=== PATIENT | female | born 1945 | race Caucasian/White ===

== ENCOUNTER 2019-01-15 21:05 | Emergency (ER) | payer MEDICARE, OTHER ==
[~2019-01-15] VITALS: Ht 157.5 cm; Wt 68.9 kg
--- OUTSIDE RECORDS SUMMARY | 2019-01-15 21:07 | XMS REPORT | Summary of Care ---
Author Organization Unknown Address Unknown Phone Unavailable Encounter HQ Chino_carlyn(AMELIA) [id number] Date(s): 07/31/14 - 07/31/14 [facility] [address] [place] [address]- Discharge Disposition: Home Physician Attending: Ally Juares MD Physician_Referring: Ally Juares MD Vital Signs Most recent to 1 oldest [Reference Range]: Height 157.48 cm (07/31/14 3:41 PM) Weight 78.636 kg (07/31/14 3:41 PM) Body Mass Index 31.71 m2 (07/31/14 3:41 PM) Problem List No data available for this section Allergies, Adverse Reactions, Alerts No data available for this section Medications Omniscan 2,296 mg, 8 mL, Route: INJ, Drug form: INJ, ONCALL, Start date: 07/31/14 18:00:0 0, Duration: 1 day, Stop date: 08/01/14 17:59:00 Notes: (Same as: Omniscan). Start Date: 07/31/14 Stop Date: 08/01/14 Status: Discontinued Results No data available for this section Immunizations No data available for this section Procedures No data available for this section Social History No data available for this section Assessment and Plan No data available for this section
--- OUTSIDE RECORDS SUMMARY | 2019-01-15 21:07 | XMS REPORT | Continuity of Care Document ---
Author Author [facility] Organization [facility] Address Unknown Phone Unavailable Care Team Providers Care Back Hoe Operator Name Role Phone [employer] Unavailable Unavailable Problems Problem Status Onset Date Classification Date Reported Comments Source Pain in right knee 01/04/2018 07/17/2018 [facility] [place] J20.8 - ACUTE BRONCHITIS DUE TO OTHER R0 Active 09[facility]17/2017 [facility] Z[facility]13 - ENCNTR SCREEN FOR MALIGNANT NE Active 09/09/2017 [facility] [place] 719.42 - JOINT PAIN-UP/A [facility] Active 07/25/2014 [facility] 571.0 - ALCOHOLIC FATTY Active 09/20/2013 [facility] [place] Umbilical hernia (disorder) Active 03/17/2012 Problem 07/17/2018 Data migrated from [email or web address] on 10/16/14. [facility] [place],[facility] [place], [facility] Generalized abdominal pain (finding) Active 06/30/2011 Problem 07/17/2018 Data migrated from [email or web address] on 10/16/14. [facility] [place],[facility] [place], [facility] Effusion, right knee 07/17/2018 [facility] [place] Synovial cyst of popliteal space [Quiroga], right knee 07/17/2018 [facility] [place] SYNCOPE AND COLLAPSE Active [facility] LT SHOULDER Active [facility] [place] Medications Medication Details Route Status Patient Instructions Ordering Provider Order Date Source Omniscan 2,296 mg, 8 mL, Route: INJ, Drug form: INJ, ONCALL, Start date: 07/31/14 18:00:00, Duration: 1 day, Stop date: 08/01/14 17:59:00Notes: (Same as: Omniscan). No Longer Active 07/31/2014 [facility] Allergies, Adverse Reactions, Alerts No Known Medication Allergies Immunizations No Data Provided for This Section Results No Data Provided for This Section Pathology Reports No Data Provided for This Section Diagnostic Reports Report Value Date Source Knee wo contrast MRI EXAMINATION: MRI of the right knee without contrast HISTORY: M25.561 Pain in right knee; medial right knee pain in right knee tightness right knee medial meniscus tear; right knee medial compartment chondrosis; right knee effusion; right knee Quiroga's cyst COMPARISON: There are no radiographs available for review. TECHNIQUE: Multiplanar, multisequence magnetic resonance imaging of the right knee is performed with an extremity coil without contrast. FINDINGS: Menisci: --Medial: There is a small, parrot-beak flap tear of the medial meniscus with small meniscal flap displaced anteriorly near the body/posterior horn junction (series 3, images 18 through 19 and series 4, image 17). The medial meniscus is otherwise intact. --Lateral: There is a suspected, but not definitive, nondisplaced horizontal tear involving the lateral meniscus with linear focus of increased intrameniscal signal which appears to extend to the articular surface on a single coronal and single sagittal slice (series 3, image 21 and series 4, image 29). The lateral meniscus is otherwise intact. Ligaments: The cruciate ligaments are intact. The medial collateral ligament and lateral collateral ligament complex are intact. Extensor mechanism: There is mild distal patellar tendinosis. The extensor mechanism is intact. Muscles: There is normal signal intensity and muscle bulk of the musculature at the knee. Cartilage: Within the medial compartment, there are small foci of partial- thickness chondrosis along the central to posterior weightbearing medial femoral condyle without subchondral edema. Within the lateral and patellofemoral compartments, there is no focal chondrosis or subchondral marrow edema. Bone: There are no acute fractures. There are no suspicious bone marrow replacing lesions. Soft tissues: There is a small knee effusion. There is a small, multiloculated Quiroga's cyst which has recently ruptured or is leaking with fluid extending distally along the posteromedial aspect of the medial head of the gastrocnemius muscle. IMPRESSION: 1. Small, parrot-beak flap tear of the right knee medial meniscus with small meniscal flap displaced anteriorly near the body/posterior horn junction. 2. Suspected, but not definitive, nondisplaced horizontal tear involving the right knee lateral meniscus as described above. 3. Mild medial compartment chondrosis of the right knee with small foci of partial- thickness chondrosis along the central to posterior weightbearing medial femoral condyle. 4. Small right knee effusion. 5. Small, multiloculated right knee Quiroga's cyst which has recently ruptured or is leaking with fluid extending distally along the posteromedial aspect of the medial head of the gastrocnemius muscle. 6. Mild distal right patellar tendinosis without tendon tear. 7. Intact right knee cruciate and collateral ligaments without lateral or patellofemoral compartment chondrosis. 12/28/2017 [facility] Chest 2 views DX EXAM: XR CHEST 2 VIEWS DATE: 09/17/2017 8:47 AM CDT INDICATION: - R05 Cough COMPARISON: Two-view chest x-ray July 20, 2009 TECHNIQUE: PA and lateral chest radiographs FINDINGS: Lines, tubes and hardware: None. Lungs and pleura: No pulmonary or pleural based abnormality is identified. Pulmonary vascularity is normal. Heart and mediastinum: The heart size is normal for technique. The mediastinal contours are normal. Bones: There is a chronic compression fracture involving what appears to be T11 that is unchanged from the prior exam. Remaining bony findings are unchanged. IMPRESSION: No acute cardiopulmonary abnormality. Stable compression fracture probably appears to be the T11 vertebrae. 09/17/2017 [facility] Breast Mammo Scrn JEREMI incl CAD MA BILATERAL DIGITAL SCREENING MAMMOGRAM WITH CAD: 09/10/2017 CLINICAL: Encounter For Screening Mammogram For Malignant Neoplasm Of Breast/Z12.31. Current study was evaluated with a Computer Aided Detection (CAD) system. COMPARISON:Comparison is made to exams dated: 03/20/2016 mammogram and 03/23/2014 mammogram. TECHNIQUE: Mammographic views were obtained using digital acquisition. Current study was also evaluated with a Computer Aided Detection (CAD) system. FINDINGS: There are scattered fibroglandular densities in both breasts. There are benign appearing calcifications in both breasts. No significant masses, calcifications, or other findings are seen in either breast. There has been no significant interval change. IMPRESSION: BENIGN RECOMMENDATION:There is no mammographic evidence of malignancy. A 1 year screening mammogram is recommended.(09/11/2018) This exam was interpreted at [id number] for MAYA Quach 15. Professional services are provided by the [facility]. José Villalba M.D., cm/jacy:09/21/2017 11:43:36 Lab Courier(s): RT Sallie(R)(Marce), [facility] letter sent: BI-RADS 1/2 Mammogram BI-RADS: 2 Benign 09/10/2017 [facility] Neck w/wo contrast MRA EXAM: NECK WITH AND WITHOUT CONTRAST MRA DATE: Dec 28, 2014 08:07:31 AM . CLINICAL INDICATION: carotid stenosis. TECHNIQUE: Noncontrast 2 and three-dimensional [id number] images were followed by phase contrast sequences, which were performed after uncomplicated IV ministration of 17 cc Omniscan. Source images in addition to 3-D MIP and rotational reconstructions are interpreted. COMPARISON: None available at the time of dictation. History, patient has a previous carotid ultrasound. FINDINGS: Aortic in arch: Standard anatomy. No origin stenosis. Right carotid system: Normal innominate artery. Normal common carotid artery. Normal carotid bifurcation. Suggestion of plaque in the medial right carotid bulb with partially 30% luminal compromise. The ICA is tortuous without distal stenosis. Left carotid system: Normal common carotid. Normal bifurcation and carotid bulb. Proximal left ICA tortuosity without luminal narrowing. No stenosis. Vertebral arteries: Slightly left dominant system. Normal course, caliber, contour without focal stenosis. Additional findings. The suggestion of multilevel cervical spine degenerative change with possible mass effect on the cord. These changes are incompletely evaluated. IMPRESSION: 1. Suggestion of mild atherosclerotic narrowing in the right carotid bulb without definite hemodynamic significance. 2. The internal carotid arteries are tortuous bilaterally, which may elevate velocities on carotid doppler. 3. No vertebral stenosis. 4. Suggestion of multilevel cervical spondylosis and degenerative disease with possible mass effect on the cord. If indicated, cervical spine MRI may be considered. 12/28/2014 [facility] [place] Brain w/wo contrast MRI MRI BRAIN WITH AND WITHOUT CONTRAST: CLINICAL HISTORY: 780.2 Syncope and Collapse, persistent x several months. TECHNIQUE AND FINDINGS: A routine multiplanar MRI of the brain was performed with and without intravenous contrast on a 1.5 makenna magnet. Imaging sequences include sagittal T1 localizer, coronal FLAIR, axial T2 FSE, axial proton density FSE, axial diffusion weighted, axial precontrast T1, and postcontrast T1 weighed images in the axial, coronal, and sagittal planes. COMPARISON: No prior similar examinations are available for comparison. 1. Mild to moderate diffuse age-appropriate atrophy with mild nonspecific abnormal signal most consistent with old microangiopathic ischemic changes. 2. No intracranial hemorrhage, mass, mass-effect, or extra-axial fluid collection is appreciated. 3. The diffusion weighted images are negative without evidence of increased signal to suggest acute ischemia. 4. The major intracranial flow voids are patent. 5. The post contrast images demonstrate no definite abnormal enhancement 6. The pituitary gland size and midline structures are normal. 7. Minimal mucoperiosteal thickening in the ethmoid sinus. The visualized portions of the remaining paranasal sinuses and mastoids are clear. IMPRESSION: 1. Mild to moderate diffuse age-appropriate atrophy with mild nonspecific abnormal signal most consistent with old microangiopathic ischemic changes. 2. Minimal chronic ethmoid sinusitis. SL:17 07/31/2014 [facility] Consultation Notes No Data Provided for This Section Discharge Summaries No Data Provided for This Section History and Physicals No Data Provided for This Section Vital Signs Vital Sign Value Date Comments Source Height 157.48 cm 07/31/2014 [facility] BMI Calculated 31.71 07/31/2014 [facility] Weight 78.636 07/31/2014 [facility] Encounters Location Location Details Encounter Type Encounter Number Reason For Visit Attending Provider ADM Date DC Date Status Source [facility] [place] [facility] [id number] Ally Juares 06/23/2014 06/24/2014 [facility] [place] [facility] [id number] Allyracheal Juares 07/31/2014 08/01/2014 [facility] [place] [facility] [id number] Leland Olivera 12/28/2014 12/29/2014 [facility] [place] [facility] [place] [facility] [id number] Jet Pool 09/24/2015 10/24/2015 [facility] [place] [facility] [place] [facility] [id number] Jet Pool 10/25/2015 11/24/2015 [facility] [place] [facility] [place] [facility] [id number] Ally Goodine 09/10/2017 09/11/2017 [facility] [place] [facility] [place] [facility] [id number] Bertha Baker 09/17/2017 [facility] [place] [facility] [id number] Annamaria Hillman 12/28/2017 12/29/2017 [facility] [place] Procedures No Data Provided for This Section Assessment and Plan No Data Provided for This Section Plan of Care No Data Provided for This Section Social History Social History Date Source No data available for this section 12/29/2017 [facility] [place] No data available for this section 09/18/2017 [facility] No data available for this section 11/24/2015 [facility] [place] No data available for this section 08/01/2014 [facility] No Data Provided for This Section Advance Directives No Data Provided for This Section Functional Status No Data Provided for This Section
--- OUTSIDE RECORDS SUMMARY | 2019-01-15 21:07 | XMS REPORT | Summary of Care ---
Author Organization Unknown Address Unknown Phone Unavailable Encounter HQ Sabinontr_carlyn(AMELIA) [id number] Date(s): 06/23/14 - 06/23/14 [facility] Outpatient Imaging - [address] [address]- [place] Discharge Disposition: Home Physician Attending: Ally Juares MD Reason for Visit 724.5 - BACKACHE NOS 780.2 - SYNCOPE AND COL 719.45 - JOINT PAIN-PELV 724.5 - BA Problem List No data available for this section Allergies, Adverse Reactions, Alerts No data available for this section Medications No data available for this section Medications Administered During Your Visit No data available for this section Immunizations No data available for this section
--- OUTSIDE RECORDS SUMMARY | 2019-01-15 21:07 | XMS REPORT | Summary of Care ---
Author Author [facility] [place] Organization [facility] [place] Address Unknown Phone Unavailable Encounter HQ Encntr_carlyn(FIN) [id number] Date(s): 12/28/17 - 12/28/17 [facility] [place] [address] [place] [address]- [facility] [phone] Encounter Diagnosis Pain in right knee (Final) - 01/03/18 Effusion, right knee (Final) - Synovial cyst of popliteal space [Quiroga], right knee (Final) - Discharge Disposition: Home or Self Care Attending Physician: Annamaria Hillman DO Referring Physician: Annamaria Hillman DO Vital Signs No data available for this section Problem List Condition Effective Dates Status Health Status Informant Generalized 06/30/11 Active abdominal pain1 Umbilical hernia2 03/17/12 Active 1Data migrated from [employer] on 10/16/14. 2Data migrated from [employer] on 10/16/14. Allergies, Adverse Reactions, Alerts Substance Reaction Severity Status NKDA1 Active 1Data migrated from [employer] on 07/10/15. Originally documented as NKA. Medications No data available for this section Results No data available for this section Immunizations No data available for this section Procedures No data available for this section Social History No data available for this section Assessment and Plan No data available for this section
--- OUTSIDE RECORDS SUMMARY | 2019-01-15 21:07 | XMS REPORT | Summary of Care ---
Author Author [facility] [place] Organization [facility] [place] Address Unknown Phone Unavailable Encounter HQ Sabinontr_carlyn(FIN) [id number] Date(s): 09/10/17 - 09/10/17 [facility] [place] [address] [place] [address] [phone] Discharge Disposition: Home or Self Care Attending Physician: Ally Juares MD Vital Signs No data available for this [...]
--- OUTSIDE RECORDS SUMMARY | 2019-01-15 21:07 | XMS REPORT | Summary of Care ---
Author Author [facility] [place] Organization [facility] [place] Address Unknown Phone Unavailable Encounter HQ Encntr_alias(FIN) [id number] Date(s): 12/28/14 - 12/28/14 [facility] [place] [address] [facility] [place] [address] [phone] Discharge Disposition: Home Attending Physician: Leland Olivera MD Vital Signs No data available for this section Problem List Condition Effective Dates Status Health Status Informant Generalized 06/30/11 Active abdominal pain1 Umbilical hernia2 03/17/12 Active 1Data migrated from [employer] on 10/16/14. 2Data migrated from [employer] on 10/16/14. Allergies, Adverse Reactions, Alerts No data available for this section Medications No data available for this section Results No data available for this section Immunizations No data available for this section Procedures No data available for this section Social History No data available for this section Assessment and Plan No data available for this section
--- OUTSIDE RECORDS SUMMARY | 2019-01-15 21:07 | XMS REPORT | Summary of Care ---
Author Author [facility] Address Unknown Phone Unavailable Encounter HQ Encntr_alias(FIN) [id number] Date(s): 10/25/15 - 11/23/15 [facility] Discharge Disposition: Home Attending Physician: Jet Pool DO Vital Signs No data available for [...]
--- OUTSIDE RECORDS SUMMARY | 2019-01-15 21:07 | XMS REPORT | Summary of Care ---
Author Author [facility] Address Unknown Phone Unavailable Encounter HQ Encntr_alias(FIN) [id number] Date(s): 09/24/15 - 10/23/15 [facility] Discharge Disposition: Home Attending Physician: Jet Pool [...]
--- OUTSIDE RECORDS SUMMARY | 2019-01-15 21:08 | XMS REPORT ---
Author Author [facility] Address Unknown Phone Unavailable Care Team Providers Care Health Care Marketing Manager Name Role Phone Unavailable Unavailable Payers Payer Name Policy Type Policy Number Effective Date Expiration Date Problems This patient has no known problems. Allergies, Adverse Reactions, Alerts Allergy Name Allergy Type Status Severity Reaction(s) Onset Date Inactive Date Treating Clinician Comments No Known Allergies DA Active U 2017-10-30 00:00:00 Medications This patient has no known medications. Results Test Description Test Time Test Comments Text Results Atomic Results Result Comments - US ABDOMEN LTD 2018-12-02 15:40:00 Name: OZZIE TORO [facility] : 1945 Age/S: 73 / F [address] [place] Unit #: [id number] Loc: [place] [address] Phys: Dhruv Lebron MD Acct: [id number] Dis Date: Status: REG REF PHONE #: [phone] Exam Date: 12/02/2018 1025 FAX #: Reason: LIVER US EXAMS: CPT: [id number] US ABDOMEN LTD [id number] EXAMINATION: - US ABDOMEN LTD. LOCATION: S17. HISTORY: FLORES, DM, HTN. COMPARISON: US abdomen 12/31/2017 and 10/30/2017. TECHNIQUE: Multiple grayscale, pulse Doppler and color Doppler images of the right upper quadrant of the abdomen were obtained. FINDINGS: Examination is limited due to patient body habitus. The visualized liver parenchyma is homogeneous in echogenicity. The main, right and left portal vein is patent. Splenic vein, hepatic veins and hepatic artery are patent. There is no intra or extrahepatic biliary ductal dilatation. The common duct measures 2 mm. The contracted gallbladder is without calculi or wall thickening. The visualized pancreatic head and body appears unremarkable, evaluation of the tail is limited by overlying bowel gas. The right kidney measures 10.2 cm. There is no hydronephrosis. The visualized portions of abdominal aorta demonstrates atherosclerosis. IVC appear unremarkable. IMPRESSION: No cholelithiasis. Interval improvement of previously noted diffusely increased echogenicity of liver parenchyma. at 1540 Reported and signed by: Chemo Puckett M.D. CC: Ally Juares MD; Dhruv Lebron MD Technologist: Kera Snyder, RT(R),RDMS(AB) Trntxb Date/Time: 12/02/2018 (4157) [email or web address] PAGE 1 Signed Report Name: OZZIE TORO [facility] [place] : 1945 Age/S: 73 / F [id number] [place] Unit #: [id number] Loc: [place] [address] Phys: Dhruv Lebron MD Acct: [id number] Dis Date: Status: REG REF PHONE #: [phone] Exam Date: 12/02/2018 1020 FAX #: Reason: LIVER US EXAMS: CPT: [id number] US ABDOMEN LTD [id number] <Continued> Orig Print D/T: S: 12/02/2018 (7751) Probe: PAGE 2 Signed Report
--- OUTSIDE RECORDS SUMMARY | 2019-01-15 21:08 | XMS REPORT | Summary of Care ---
Author Author [facility] Outpatient Imaging [facility] Outpatient Imaging [facility] Address Unknown Phone Unavailable Encounter HQ Sabinontr_carlyn(FIN) [id number] Date(s): 09/17/17 - 09/17/17 [facility] Outpatient Imaging [facility] [address] [facility], [address] [place] [phone] Discharge Disposition: Home or Self Care Attending Physician: Bertha Baker MD Vital Signs No data available for [...]
--- NOTE | 2019-01-15 22:31 | Diagnostic Imaging Report ---
History: Status post fall. Comparison studies: None Technique: Axial images were obtained through the cervical region.. Coronal and sagittal images reconstructed from the axial data. Dose modulation, iterative reconstruction, and/or weight based adjustment of the mA/kV was utilized to reduce the radiation dose to as low as reasonably achievable. Intravenous contrast: None Findings: Fractures: Age indeterminate fracture of the anterior vertebral osteophyte at level C4-C5 (image 24, series 600). Soft tissue injuries: Questionable mild prevertebral soft tissue edema at level C4-C5. Atlantoaxial articulation: Intact. Alignment: Reversal of normal cervical lordosis is either positional or due to muscle spasm. No scoliosis. 2 mm grade 1 retrolisthesis at C4-C5 and 3.5 mm grade 1 retrolisthesis at C6-C7. Cervicomedullary junction: No abnormalities. The foramen magnum is patent. Soft tissues: Atherosclerotic calcification in bilateral carotid siphon. Vertebrae: No fractures, infection or neoplasm. Degenerative changes: C4-C5: Moderate degenerative disc disease. Posterior disc osteophyte complex results in moderate canal stenosis. Mild right and moderate left foraminal stenosis due to facet and uncovertebral arthrosis. C5-C6: Moderate degenerative disc disease. Posterior disc osteophyte complex results in severe canal stenosis. Moderate right foraminal stenosis due to facet and uncovertebral arthrosis. C6-C7: Moderate degenerative disc disease. Posterior disc osteophyte complex and grade 1 retrolisthesis results in severe canal stenosis. Moderate bilateral foraminal stenosis due to facet and uncovertebral arthrosis. C7-T1: Posterior disc osteophyte complex results in mild canal stenosis. Mild right foraminal stenosis due to facet and uncovertebral arthrosis. IMPRESSION: 1. Age indeterminate fracture of the anterior vertebral osteophyte at level C4-C5 with questionable mild prevertebral soft tissue edema. If there is clinical concern consider follow-up with MRI of the cervical spine without contrast per trauma protocol. 2. Reversal of normal cervical lordosis is either positional or due to muscle spasm. Grade 1 retrolisthesis at C4-C5 and C6-C7. 3. Ligament, spinal cord and or vascular abnormalities cannot be excluded on the basis of this examination. 4. Cervical spondylosis as detailed above. Signed by: Dr. Lizet Edgar M.D. on 01/15/2019 10:28 PM
--- NOTE | 2019-01-15 22:35 | Diagnostic Imaging Report ---
EXAMINATION: Head CT without contrast. HISTORY:Fall. COMPARISON:None. TECHNIQUE: Multidetector axial images were obtained from the foramen magnum to the vertex without contrast. The images were reconstructed using brain and bone algorithms. Thin section brain images were reformatted into coronal and sagittal planes. Dose modulation, iterative reconstruction, and/or weight based adjustment of the mA/kV was utilized to reduce the radiation dose to as low as reasonably achievable. Intravenous contrast: None IMAGE QUALITY: Acceptable. FINDINGS: Skull/scalp: No lytic or blastic. lesions. No surgical changes. Parenchyma: Nonspecific few, scattered supratentorial white matter hypodensity are likely related to small vessel ischemic changes. No acute hemorrhage, mass or acute major vascular territorial infarct. Arteries: No density suggestive of thrombosis. Atherosclerotic calcification in bilateral carotid siphon. Dural sinuses: No abnormal density suggestive of thrombosis. Ventricles: No hydrocephalus or displacement. Extra-axial spaces: No abnormal density. Brain volume: Moderate generalized cerebral volume loss. Craniocervical junction: No mass, Chiari malformation, or basilar invagination. Sella: No mass. Paranasal/mastoid sinuses: Imaged portions unremarkable. IMPRESSION: No acute intracranial abnormality. Mild supratentorial white matter microvascular ischemic changes. Moderate generalized cerebral volume loss. Signed by: Dr. Lizet Edgar M.D. on 01/15/2019 10:32 PM
--- NOTE | 2019-01-15 22:40 | Diagnostic Imaging Report ---
History:Fall. Comparison studies:None Technique: Axial images were obtained through the orbits without contrast. Coronal and sagittal images reconstructed from the axial data. Dose modulation, iterative reconstruction, and/or weight based adjustment of the mA/kV was utilized to reduce the radiation dose to as low as reasonably achievable. Intravenous contrast: None. Findings: Globes: Grossly intact. The anterior and posterior chambers are clear. Bilateral pseudophakia. Optic nerves: Normal in size and symmetric. Extraocular muscles: Normal in size and symmetric. Intraconal abnormalities: None. Superior ophthalmic veins: Normal in size and symmetric. Cavernous sinuses: Grossly symmetric. Pituitary stalk: At midline. Bones: No abnormalities. Sinuses: Clear. Soft tissues: Moderate left periorbital preseptal soft tissue edema/hematoma. No soft tissue emphysema or radiopaque foreign body. IMPRESSION: 1. Moderate left periorbital soft tissue edema/hematoma. 2. No acute fracture. Signed by: Dr. Lizet Edgar M.D. on 01/15/2019 10:37 PM
--- NOTE | 2019-01-16 00:29 | NUR ---
REPORT GIVEN TO SAMANTHA DIEGO AT [facility].
[2019-01-16] MEDS ORDERED: MORPHINE SULFATE INJ 4 MG/ML INJ 1ML IV PRN (00:30)
[2019-01-16] MEDS ORDERED: ONDANSETRON HCL INJ 2MG/ML 2ML 2 MG/ML VIAL ONE (01:06)
[2019-01-16 01:29] VITALS: BP 123/66
== END 2019-01-16 01:40 | disposition short-term general hospital (02) ==
LOC: ER 21:05
DX: S12.491A Other nondisplaced fracture of fifth cervical vertebra, initial encounter for closed fracture (principal); S12.391A Other nondisplaced fracture of fourth cervical vertebra, initial encounter for closed fracture; S06.0X0A Concussion without loss of consciousness, initial encounter; S00.83XA Contusion of other part of head, initial encounter; W01.198A Fall on same level from slipping, tripping and stumbling with subsequent striking against other object, initial encounter; Y92.89 Other specified places as the place of occurrence of the external cause; I10 Essential (primary) hypertension; E11.9 Type 2 diabetes mellitus without complications; J44.9 Chronic obstructive pulmonary disease, unspecified; E03.9 Hypothyroidism, unspecified; F41.9 Anxiety disorder, unspecified
CPT/HCPCS: 70450; 70480; 72125; 96374; 96375; 99284; J2270; J2405

== ENCOUNTER 2024-01-13 15:42 | Emergency (ER) | payer MEDICARE, OTHER ==
[~2024-01-13] VITALS: Ht 157.5 cm; Wt 68.9 kg
[2024-01-13 15:47] VITALS: TEMP 98
[2024-01-13 16:06] LABS: BASOPHILS % 0.3 % (0.0-1.0); EOSINOPHILS # (AUTO) 0.2 (0.0-0.4); HEMATOCRIT 44.2 % (34.2-44.1); HEMOGLOBIN 14.6 g/dL (12.0-16.0); LYMPHOCYTES # (AUTO) 5.2 (1.0-3.2); MEAN CORPUSCULAR HEMOGLOBIN 30.4 pg (28-32); MEAN CORPUSCULAR VOLUME 92.1 fL (81-99); MONOCYTES # (AUTO) 1.4 (0.2-0.8); NEUTROPHILS # (AUTO) 3.4 (2.1-6.9); NEUTROPHILS % 33.5 % (38.7-80.0); PLATELET COUNT 223 x10e3/uL (140-360); WHITE BLOOD COUNT 10.29 x10e3/uL (4.8-10.8)
[2024-01-13] MEDS: SODIUM CHLORIDE 0.9% 1000ML 1,000 ML IV STA (16:22)
[2024-01-13] MEDS: DICYCLOMINE HCL 20 MG/2 ML VIAL IM ONE (16:22)
[2024-01-13] MEDS ORDERED: DICYCLOMINE HCL20 MG PO (16:23)
[2024-01-13 16:31] LABS: ALBUMIN/GLOBULIN RATIO 1.1 (0.8-2.0); ANION GAP 17.4 mmol/L (8-16); BILIRUBIN,TOTAL 0.2 mg/dL (0.2-1.2); CALCIUM 10.1 mg/dL (8.4-10.2); CREATININE, SERUM 1.3 mg/dL (0.57-1.11); POTASSIUM 3.4 mmol/L (3.5-5.1); TOTAL PROTEIN 7.6 g/dL (6.5-8.1)
[2024-01-13] MEDS ORDERED: AMOX TR-K CLV1 EAC2 PO (16:57)
[2024-01-13 17:00] VITALS: PULSE 71; RESP 16
[2024-01-13 17:20] VITALS: BP 158/67; PULSE 97; RESP 16; O2SAT 97
== END 2024-01-13 17:00 | disposition home or self-care (01) ==
LOC: ER 15:48
DX: R19.7 Diarrhea, unspecified (principal); I10 Essential (primary) hypertension; E11.9 Type 2 diabetes mellitus without complications; E78.5 Hyperlipidemia, unspecified; J44.9 Chronic obstructive pulmonary disease, unspecified; E03.9 Hypothyroidism, unspecified; K76.0 Fatty (change of) liver, not elsewhere classified; F41.9 Anxiety disorder, unspecified
CPT/HCPCS: 36415; 80053; 83690; 85025; 99284; J0500; J7030